=== PATIENT | female | born 1970 | race Two or more races ===

== ENCOUNTER 2024-01-20 05:02 | Day surgery (SDC) | payer OTHER ==
[2024-01-16 16:53] VITALS: BMI 29.2
[2024-01-20] MEDS ORDERED: GABAPENTIN 300 MG CAPSULE ONE (06:25)
[2024-01-20] MEDS: PHENAZOPYRIDINE HCL 100 MG TABLET (FP) PO ONE (06:30)
[2024-01-20] MEDS: GABAPENTIN 300 MG CAPSULE PO ONE (06:31)
[2024-01-20] MEDS: ACETAMINOPHEN 500 MG TABLET (FP) PO ONE (06:31)
[2024-01-20] MEDS ORDERED: PROPOFOL 20 ML ONE (07:32)
[2024-01-20] MEDS ORDERED: ROCURONIUM BROMIDE 50 MG/5 ML SYRINGE ONE ×2 (07:32→09:02)
[2024-01-20] MEDS ORDERED: MIDAZOLAM HCL 2 MG/2 ML SINGLE DOSE VIAL ONE (07:32)
[2024-01-20] MEDS ORDERED: LIDOCAINE HCL/PF 2% SDV 5ML VIAL ONE (07:43)
[2024-01-20] MEDS ORDERED: ONDANSETRON 4 MG/2 ML VIAL ONE (07:54)
[2024-01-20] MEDS ORDERED: DEXAMETHASONE SOD PHOSPHATE 4 MG/1 ML VIAL ONE (07:54)
[2024-01-20] MEDS ORDERED: ceFAZolin SODIUM 1 GM VIAL ONE (07:54)
[2024-01-20] MEDS: ceFAZolin SODIUM 1 GM VIAL IVPB ONE (07:58)
[2024-01-20] MEDS ORDERED: TRANEXAMIC ACID 1000 MG/10 ML VIAL ONE (08:09)
[2024-01-20] MEDS ORDERED: HYDROmorphone HCl 2 MG/ML VIAL ONE (08:10)
[2024-01-20] MEDS ORDERED: NEOSTIGMINE METHYLSULFATE 0.5 MG/1 ML - 10 ML MDV ONE (09:57)
[2024-01-20] MEDS ORDERED: GLYCOPYRROLATE 0.2 MG/1 ML VIAL ONE (09:58)
[2024-01-20] MEDS ORDERED: ONDANSETRON 4 MG/2 ML VIAL IVPUSH PRN ×2 (10:33→10:37)
[2024-01-20] MEDS ORDERED: HYDROmorphone HCl 2 MG/ML VIAL IVPB PRN (10:33)
[2024-01-20] MEDS ORDERED: BISACODYL 5 MG TABLET.DR (FP) PO PRN (10:37)
[2024-01-20] MEDS ORDERED: oxyCODONE HCL 5 MG TABLET PO PRN (10:37)
[2024-01-20] MEDS: ACETAMINOPHEN 1000 MG/100 ML BAG IVPB ONE (10:44)
[2024-01-20] MEDS: LACTATED RINGERS SOLUTION 1,000 ML IV SCH (10:45)
[2024-01-20] MEDS ORDERED: HYDROmorphone HCL CARPU-JECT 2 MG/1 ML DISP.SYRIN IVPB PRN (14:12)
[2024-01-20] MEDS: IBUPROFEN 800 MG/8 ML IJ IVPB PRN (14:23)
[2024-01-20] MEDS: ACETAMINOPHEN 325 MG TABLET (FP) PO SCH (17:12)
[2024-01-20] MEDS: CEFAZOLIN 1 GM in DEXTROSE 5%-WATER - 50 ML IVPB SCH (17:16)
[2024-01-20] MEDS ORDERED: ZOLPIDEM TARTRATE 5 MG TABLET PO PRN (18:47)
[2024-01-20 19:00] LABS: HEMATOCRIT 33.7 % (32.4-45.2); HEMOGLOBIN 11.6 GM/dL (10.7-15.3); MCH 30.9 pg (25.7-33.7); MCHC 34.4 g/dl (32.0-36.0); MEAN CELL VOLUME 89.6 fl (80-96); MEAN PLT VOLUME 9.1 fl (7.5-11.1); PLATELET COUNT 205 10^3/uL (134-434); RBC 3.76 M/mm3 (3.60-5.2); RDW 12.8 % (11.6-15.6); WHITE BLOOD COUNT 19.7 K/mm3 (4.0-10.0)
[2024-01-20 19:46] LABS: POTASSIUM 3.8 mmol/L (3.5-5.1)
[2024-01-20 19:48] LABS: BLOOD UREA NITROGEN 9.1 mg/dL (7-18); CALCIUM 8.6 mg/dL (8.5-10.1)
[2024-01-20 19:52] LABS: CREATININE 0.6 mg/dL (0.55-1.3)
[2024-01-20] MEDS: oxyCODONE HCL 5 MG TABLET PO PRN (19:54)
[2024-01-20] MEDS: SIMETHICONE 80 MG TAB.CHEW (FP) PO PRN (19:54)
[2024-01-20] MEDS: CEFAZOLIN 2 GM in DEXTROSE 5%-WATER - 100 ML IVPB ONE (21:50)
[2024-01-20] MEDS: DOCUSATE SODIUM 100 MG CAPSULE (FP) PO PRN (22:29)
[2024-01-21 02:02] VITALS: RESP 18
[2024-01-21 07:06] LABS: HEMATOCRIT 34.2 % (32.4-45.2); HEMOGLOBIN 11.6 GM/dL (10.7-15.3); MCH 30.8 pg (25.7-33.7); MCHC 33.9 g/dl (32.0-36.0); MEAN CELL VOLUME 90.7 fl (80-96); MEAN PLT VOLUME 9.6 fl (7.5-11.1); PLATELET COUNT 216 10^3/uL (134-434); RBC 3.77 M/mm3 (3.60-5.2); RDW 13.1 % (11.6-15.6); WHITE BLOOD COUNT 17.4 K/mm3 (4.0-10.0)
[2024-01-21 07:55] LABS: POTASSIUM 3.9 mmol/L (3.5-5.1)
[2024-01-21 07:56] LABS: CALCIUM 8.4 mg/dL (8.5-10.1)
[2024-01-21 07:57] LABS: BLOOD UREA NITROGEN 7.5 mg/dL (7-18)
[2024-01-21 08:00] LABS: CREATININE 0.5 mg/dL (0.55-1.3)
[2024-01-21 09:28] VITALS: BP 139/84; PULSE 67; TEMP 98.3
[2024-01-21] MEDS: ENOXAPARIN NA (PORCINE) 40 MG/0.4 ML DISP.SYRIN SQ SCH (10:29)
== END 2024-01-21 12:30 | disposition home or self-care (01) ==
LOC: JASUSAT 05:02 → J3W 13:40 → JASUSAT 01-21 12:30
PROVIDERS: ATTEND Obstetrics & Gynecology
PROC: 0UT9FZZ Resection of Uterus, Via Natural or Artificial Opening With Percutaneous Endoscopic Assistance (ICD-10-PCS; principal; 2024-01-20 07:30)
PROC: 0UT7FZZ Resection of Bilateral Fallopian Tubes, Via Natural or Artificial Opening With Percutaneous Endoscopic Assistance (ICD-10-PCS; 2024-01-20 07:30)
PROC: 0UT2FZZ Resection of Bilateral Ovaries, Via Natural or Artificial Opening With Percutaneous Endoscopic Assistance (ICD-10-PCS; 2024-01-20 07:30)
PROC: 8E0W4CZ Robotic Assisted Procedure of Trunk Region, Percutaneous Endoscopic Approach (ICD-10-PCS; 2024-01-20 07:30)
DX: D25.1 Intramural leiomyoma of uterus (principal); D25.2 Subserosal leiomyoma of uterus; N80.03 Adenomyosis of the uterus; N80.202 Endometriosis of left fallopian tube, unspecified depth; N80.101 Endometriosis of right ovary, unspecified depth
CPT/HCPCS: 58552; S2900; 36415; 80048; 81025; 85027; 86850; 86900; 86901; 88305-TC; 88307-TC; 94010; 94760; J0131